=== PATIENT | male | born 1950 | race Caucasian/White ===

== ENCOUNTER 2020-05-03 14:23 | Outpatient (CLI) | payer MEDICARE, OTHER ==
--- NOTE | 2020-05-03 16:05 | MRI ---
EXAM: MRI of the pelvis/prostate without and with contrast HISTORY: elevated PSA COMPARISON: None TECHNIQUE: Multiplanar multisequence MR images were obtained of the pelvis without and with IV contra st. Evaluation of this exam was performed with a [employer] workstation. FINDINGS: Central gland: Mild hypertrophy of the central gland consistent with BPH. Prostate volume is estimate d at 18 mL. The entire central gland of the prostate demonstrates very low T2 signal. There is an area of restricted diffusion and low signal on the ADC map in the right central gland of the prostate measuring 2.1 cm in size. This is in the mid gland. No discrete enhancement is seen within the normal enhancement of the prostate gland in this location. Peripheral zone: No restricted diffusion is seen. No low signal on ADC map. Seminal vesicles: Intact without abnormality Neurovascular bundles: Intact Pelvic lymph nodes: No pelvic adenopathy Other visualized intrapelvic structures: Scattered diverticula in the colon. Osseous structures: No marrow signal abnormality IMPRESSION: PI-RADS Category 3-indeterminate. The presence of clinically significant cancer is equivocal. The equ ivocal abnormality is the abnormality in the central gland of the prostate. Generally, Central gland lesions are evaluated with the T2 images but there is very low T2 signal within the entire cent ral gland of the prostate. The significance of the restricted diffusion in the central gland is of uncertain significance.
== END 2020-05-03 14:24 | disposition home or self-care (01) ==
LOC: TBSIIMAG 14:23
PROVIDERS: ATTEND Urology
DX: R97.20 Elevated prostate specific antigen [PSA] (principal)
CPT/HCPCS: 72197; 82565

== ENCOUNTER 2020-06-23 09:49 | Outpatient (CLI) | payer MEDICARE, OTHER ==
--- NOTE | 2020-06-23 13:38 | NM ---
WHOLE BODY BONE SCAN: HISTORY: Prostate cancer RADIOPHARMACEUTICAL: 31.10 mCi technetium 99m-MDP injected intravenously COMPARISON:MR of the pelvis with and without contrast dated 05/03/2020 CORRELATION: None FINDINGS: Mild scattered degenerative uptake is seen involving the sternoclavicular joints, AC joint, spine, an kles and feet. No other abnormal areas of tracer localization are seen in the skeleton to suggest metastatic disease . IMPRESSION: No scintigraphic evidence of osseous metastatic disease.
== END 2020-06-23 09:50 | disposition home or self-care (01) ==
LOC: NM 09:49
PROVIDERS: ATTEND Urology
DX: C61 Malignant neoplasm of prostate (principal)
CPT/HCPCS: 78306; A9503

== ENCOUNTER 2021-03-07 15:26 | Outpatient (CLI) | payer MEDICARE | END 2021-03-07 15:27 | disposition home or self-care (01) | LOC: BICRAD 15:26 | PROVIDERS: ATTEND Internal Medicine Cardiovascular Disease | DX: I35.0 Nonrheumatic aortic (valve) stenosis (principal) | CPT/HCPCS: 71046 ==

== ENCOUNTER 2021-04-03 13:12 | Outpatient (CLI) | payer MEDICARE ==
[2021-04-03 14:21] LABS: #Eosinphils 0.1 10x3/uL (0.0-0.5); #Monocytes 0.5 10x3/uL (0.0-1.1); #Neutrophils 5.1 10x3/uL (1.5-8.4); %Basophils 0.3 % (0.0-2.0); %Eosinophils 0.8 % (0.0-6.0); %Lymphocytes 13.5 % (18.0-47.0); %Neutrophils 78.1 % (40.0-75.0); Hemoglobin 13.9 g/dL (13.5-17.5); Mean Corpuscular HGB CONC 32.9 g/dL (32.0-36.0); Mean Corpuscular Volume 94.4 fl (81.2-95.1); Mean Platelet Volume 9.8 fl (7.4-10.4); Platelet Count 246 10x3/uL (150-450); Red Blood Cell (RBC) Count 4.48 10x6/uL (4.32-5.72); White Blood Cell (WBC) Count 6.6 10x3/uL (3.5-10.5)
[2021-04-03 14:42] LABS: ALT (SGPT) 20 U/L (8-55); AST (SGOT) 17 U/L (5-34); Albumin 4.3 g/dL (3.4-4.8); Alkaline Phosphatase 90 U/L (40-110); Anion Gap 18 mmol/L (10-20); BUN (Urea Nitrogen) 20 mg/dL (8.4-25.7); Bilirubin, Total 0.4 mg/dL (0.2-1.2); Calc. Creatinine Clearance 0 mL/min (70-130); Calcium 10.5 mg/dL (7.8-10.44); Carbon Dioxide 25 mmol/L (23-31); Chloride 104 mmol/L (98-107); Globulin 2.3 g/dL (2.4-3.5); Glucose 121 mg/dL (80-115); Potassium 4.6 mmol/L (3.5-5.1); Protein, Total 6.6 g/dL (5.8-8.1); Sodium 142 mmol/L (136-145)
[2021-04-04 12:38] LABS: SARS-CoV-2 PCR by NAA Not Detected (NotDetected)
== END 2021-04-03 13:13 | disposition home or self-care (01) ==
LOC: LABBT 13:12
PROVIDERS: ATTEND Internal Medicine Cardiovascular Disease
DX: Z01.812 Encounter for preprocedural laboratory examination (principal); Z20.822 Contact with and (suspected) exposure to COVID-19
CPT/HCPCS: 80053; 85025; U0003; U0005

== ENCOUNTER → 2021-04-06 | Day surgery (SDC) | payer MEDICARE ==
[2021-04-05 11:27] VITALS: BMI 29.5
[~2021-04-06] MED LIST: Fentanyl 100 MCG/2 ML VIAL ONE; Heparin 10,000 UNITS/ 10 ML VIAL ONE; Iopamidol 370 76% 100 ML VIAL ONE; Lidocaine 1% (PF) 30 ML VIAL ONE; Midazolam HCl 2 mg/2 ml Vial ONE; Nitroglycerin 100MG/250ML BOT 0 ML ONE; Verapamil 5 MG/2 ML VIAL ONE
== END ==
LOC: CCL 06:19
PROVIDERS: ATTEND Internal Medicine Cardiovascular Disease
PROC: 4A023N8 Measurement of Cardiac Sampling and Pressure, Bilateral, Percutaneous Approach (ICD-10-PCS; principal; 2021-04-06)
PROC: B2111ZZ Fluoroscopy of Multiple Coronary Arteries using Low Osmolar Contrast (ICD-10-PCS; 2021-04-06)
DX: I35.0 Nonrheumatic aortic (valve) stenosis (principal); I10 Essential (primary) hypertension; I42.0 Dilated cardiomyopathy; I71.2 Thoracic aortic aneurysm, without rupture; M06.9 Rheumatoid arthritis, unspecified; C61 Malignant neoplasm of prostate; Z87.891 Personal history of nicotine dependence; Z79.899 Other long term (current) drug therapy
CPT/HCPCS: 76942; 93460; 99152; 99153; J1644; J2001; J2250; J3010; Q9967

== ENCOUNTER 2022-09-28 13:12 | Outpatient (CLI) | payer MEDICARE ==
[2022-09-28] MEDS ORDERED: Iopamidol 370 76% 100 ML VIAL ONE (15:02)
== END 2022-09-28 13:13 | disposition home or self-care (01) ==
LOC: CT 13:12
PROVIDERS: ATTEND Internal Medicine Cardiovascular Disease
DX: I42.9 Cardiomyopathy, unspecified (principal); I71.21 Aneurysm of the ascending aorta, without rupture
CPT/HCPCS: 36415; 71275; 80061; 82565; Q9967

== ENCOUNTER 2023-05-17 09:38 | Outpatient (CLI) | payer MEDICARE | END 2023-05-17 09:39 | disposition home or self-care (01) | LOC: CT 09:38 | PROVIDERS: ATTEND Neurological Surgery | DX: S06.6X9A Traumatic subarachnoid hemorrhage with loss of consciousness of unspecified duration, initial encounter (principal) | CPT/HCPCS: 70450 ==

== ENCOUNTER 2024-01-13 09:33 | Outpatient (CLI) | payer MEDICARE | END 2024-01-13 09:34 | disposition home or self-care (01) | LOC: BICMAMMO 09:33 | PROVIDERS: ATTEND Radiology Radiation Oncology | DX: N63.20 Unspecified lump in the left breast, unspecified quadrant (principal) | CPT/HCPCS: 77066; G0279 ==

== ENCOUNTER 2024-08-18 12:30 | Outpatient (CLI) | payer MEDICARE | END 2024-08-18 12:31 | disposition home or self-care (01) | LOC: PET 12:30 | PROVIDERS: ATTEND Radiology Radiation Oncology | DX: C61 Malignant neoplasm of prostate (principal); R97.21 Rising PSA following treatment for malignant neoplasm of prostate; Z92.3 Personal history of irradiation; R59.0 Localized enlarged lymph nodes | CPT/HCPCS: 78815; A9552; A9595 ==